=== PATIENT | female | born 1930 | race Caucasian/White ===

== ENCOUNTER 2018-05-05 13:40 | Emergency (ER) | payer MEDICARE, OTHER ==
--- NOTE | 2018-05-05 14:18 | EDM.PDOC ---
ED HPI GENERAL MEDICAL PROBLEM - General Chief Complaint: Genitourinary Problem Stated Complaint: BLOOD IN URINE Time Seen by Provider: 05/05/18 14:02 Source of Information: Reports: Patient History Limitations: Reports: No Limitations - History of Present Illness INITIAL COMMENTS - FREE TEXT/NARRATIVE: Patient is a 87-year-old female who presents to the ED complaining of hematuria. She states she believes this started a few days ago. She noticed this a.m. thus prompted examination in the ER today. She attempted to get in with her PCP but was unable to. She denies any pain with urination. She has no prior history of hematuria. No abdominal pain as well. She denies any fever, chills, night sweats, history of bladder cancer. Patient does have a history of incontinence and has in the past had a UTI with not knowing. She has no history of kidney stones. She has no smoking history. She denies any additional complaints. - Related Data Allergies Allergy/AdvReac Type Severity Reaction Status Date / Time Sulfa (Sulfonamide Allergy Hives Verified 12/26/14 09:49 Antibiotics) Home Meds: Home Meds Amitriptyline [Elavil] 50 mg PO BEDTIME 05/05/18 [History] Calcium Citrate/Vitamin D3 [Calcium Citrate - Vit D Caplet] 1 tab PO DAILY 05/05 [History] Ciprofloxacin HCl [Cipro] 500 mg PO BID #14 tablet 05/05/18 [Rx] Cyanocobalamin (Vitamin B12) [Vitamin B12] 250 mcg PO DAILY 05/05/18 [History] Folic Acid 400 mcg PO DAILY 05/05/18 [History] Gluc/Daryn-Msm#2/C/D3/Bairon/Born [Eafjmrxmll-Tdjpuysxnny-KFL] 1 tab PO DAILY 05/05 [History] Levothyroxine [Synthroid] 88 mcg PO DAILY 05/05/18 [History] Meloxicam 15 mg PO DAILY 05/05/18 [History] Metoprolol Tartrate 25 mg PO DAILY 05/05/18 [History] Multivitamin [Multivitamins] 1 tab PO DAILY 05/05/18 [History] [place]-3/DHA/Epa/Fish Oil [[place]-3 Fish Oil 1,000 MG Sfgl] 1,000 mg PO DAILY [History] Omeprazole 20 mg PO DAILY 05/05/18 [History] PEG 400/Hypromellose/Glycerin [Visine Tears Drops] 1 drop TOP ASDIRECTED [History] Pyridoxine HCl [Vitamin B-6] 100 mg PO DAILY 05/05/18 [History] Tolterodine Tartrate [Detrol LA] 4 mg PO DAILY 05/05/18 [History] Vitamin E 400 unit PO DAILY 05/05/18 [History] amLODIPine [Norvasc] 5 mg PO DAILY 05/05/18 [History] Past Medical History Cardiovascular History: Reports: Hypertension Gastrointestinal History: Reports: GERD Genitourinary History: Reports: Urinary Incontinence Endocrine/Metabolic History: Reports: Hypothyroidism - Past Surgical History HEENT Surgical History: Reports: Tonsillectomy Female Surgical History: Reports: Hysterectomy Social & Family History - Tobacco Use Smoking Status *Q: Never Smoker - Caffeine Use Caffeine Use: Reports: Coffee - Recreational Drug Use Recreational Drug Use: No ED ROS GENERAL - Review of Systems Review Of Systems: ROS reveals no pertinent complaints other than HPI. ED EXAM, RENAL/ - Physical Exam Exam: See Below Exam Limited By: No Limitations General Appearance: Alert, WD/WN, No Apparent Distress Ears: Hearing Grossly Normal Nose: Normal Inspection Throat/Mouth: Normal Inspection, Normal Voice, No Airway Compromise Head: Atraumatic, Normocephalic Neck: Normal Inspection, Supple Respiratory/Chest: No Respiratory Distress, Lungs Clear, Normal Breath Sounds, No Accessory Muscle Use Cardiovascular: Normal Peripheral Pulses, Regular Rate, Rhythm, No Murmur GI/Abdominal: Normal Bowel Sounds, Soft, Non-Tender, No Organomegaly, No Distention (Female) Exam: Deferred Back Exam: Normal Inspection. No: CVA Tenderness (L), CVA Tenderness (R) Extremities: Normal Inspection Neurological: Alert, Oriented, CN II-XII Intact, Normal Cognition, No Motor/ Sensory Deficits Psychiatric: Normal Affect, Normal Mood Skin Exam: Warm, Dry, Intact, Normal Color, No Rash Course - Vital Signs Last Recorded V/S: Last Vital Signs Temp 97.6 F 05/05/18 14:05 Pulse 80 05/05/18 14:08 Resp 20 05/05/18 14:08 BP 151/72 H 05/05/18 14:08 Pulse Ox 100 05/05/18 14:08 - Orders/Labs/Meds Orders: Active Orders 24 hr Category Date Time Status Communication Order [RC] STAT Care 05/05/18 14:14 Active Urinary Catheter Assessment [RC] ASDIRECTED Care 05/05/18 15:31 Active Urinary Catheter Insertion [Insert Urinary Catheter] [ Care 05/05/18 15:30 Ordered OM.PC] Q24H CULTURE URINE [RM] Stat Lab 05/05/18 15:20 Received Labs: Laboratory Tests 05/05/18 05/05/18 05/05/18 Range/Units 14:35 14:35 14:35 WBC 8.08 (3.98-10.04) K/mm3 RBC 3.99 (3.98-5.22) M/mm3 Hgb 12.7 (11.2-15.7) gm/L Hct 39.4 (34.1-44.9) % MCV 98.7 H (79.4-94.8) fl MCH 31.8 (25.6-32.2) pg MCHC 32.2 (32.2-35.5) g/dl RDW Std Deviation 49.6 H (36.4-46.3) fL Plt Count 300 (182-369) K/mm3 MPV 10.1 (9.4-12.3) fl Neutrophils % (Manual) 49 (40-60) % Band Neutrophils % 1 (0-10) % Lymphocytes % (Manual) 40 (20-40) % Atypical Lymphs % 0 % Monocytes % (Manual) 4 (2-10) % Eosinophils % (Manual) 6 H (0.7-5.8) % Basophils % (Manual) 0 L (0.1-1.2) Platelet Estimate Adequate RBC Morph Comment Normal PT 10.4 (9.5-12.1) SECONDS INR 0.95 APTT 28 (24-31) SECONDS Sodium 143 (136-145) mEq/L Potassium 4.5 (3.5-5.1) mEq/L Chloride 106 (98-107) mEq/L Carbon Dioxide 29 (21-32) mEq/L Anion Gap 12.5 (5-15) BUN 30 H (7-18) mg/dL Creatinine 1.2 H (0.55-1.02) mg/dL Est Cr Clr Drug Dosing 28.52 mL/min Estimated GFR (MDRD) 42 (>60) mL/min BUN/Creatinine Ratio 25.0 H (14-18) Glucose 127 H (83-115) mg/dL Calcium 9.4 (8.5-10.1) mg/dL Total Bilirubin 0.4 (0.2-1.0) mg/dL AST 19 (15-37) U/L ALT 23 (14-59) U/L Alkaline Phosphatase 90 (46-116) U/L Total Protein 7.5 (6.4-8.2) g/dl Albumin 3.7 (3.4-5.0) g/dl Globulin 3.8 gm/dL Albumin/Globulin Ratio 1.0 (1-2) Urine Color (Yellow) Urine Appearance (Clear) Urine pH (5.0-8.0) Ur Specific Lenore (1.005-1.030) Urine Protein (Negative) Urine Glucose (UA) (Negative) Urine Ketones (Negative) Urine Occult Blood (Negative) Urine Nitrite (Negative) Urine Bilirubin (Negative) Urine Urobilinogen (0.2-1.0) Ur Leukocyte Esterase (Negative) Urine RBC (0-5) /hpf Urine WBC (0-5) /hpf Ur Epithelial Cells (0-5) /hpf Amorphous Sediment (NOT SEEN) /hpf Urine Bacteria (FEW) /hpf Urine Mucus (FEW) /hpf 05/05/18 Range/Units 15:20 WBC (3.98-10.04) K/mm3 RBC (3.98-5.22) M/mm3 Hgb (11.2-15.7) gm/L Hct (34.1-44.9) % MCV (79.4-94.8) fl MCH (25.6-32.2) pg MCHC (32.2-35.5) g/dl RDW Std Deviation (36.4-46.3) fL Plt Count (182-369) K/mm3 MPV (9.4-12.3) fl Neutrophils % (Manual) (40-60) % Band Neutrophils % (0-10) % Lymphocytes % (Manual) (20-40) % Atypical Lymphs % % Monocytes % (Manual) (2-10) % Eosinophils % (Manual) (0.7-5.8) % Basophils % (Manual) (0.1-1.2) Platelet Estimate RBC Morph Comment PT (9.5-12.1) SECONDS INR APTT (24-31) SECONDS Sodium (136-145) mEq/L Potassium (3.5-5.1) mEq/L Chloride (98-107) mEq/L Carbon Dioxide (21-32) mEq/L Anion Gap (5-15) BUN (7-18) mg/dL Creatinine (0.55-1.02) mg/dL Est Cr Clr Drug Dosing mL/min Estimated GFR (MDRD) (>60) mL/min BUN/Creatinine Ratio (14-18) Glucose (83-115) mg/dL Calcium (8.5-10.1) mg/dL Total Bilirubin (0.2-1.0) mg/dL AST (15-37) U/L ALT (14-59) U/L Alkaline Phosphatase (46-116) U/L Total Protein (6.4-8.2) g/dl Albumin (3.4-5.0) g/dl Globulin gm/dL Albumin/Globulin Ratio (1-2) Urine Color Brown H (Yellow) Urine Appearance Turbid H (Clear) Urine pH 6.5 (5.0-8.0) Ur Specific Lenore 1.020 (1.005-1.030) Urine Protein 3+ H (Negative) Urine Glucose (UA) Negative (Negative) Urine Ketones Trace H (Negative) Urine Occult Blood 3+ H (Negative) Urine Nitrite Negative (Negative) Urine Bilirubin 3+ H (Negative) Urine Urobilinogen 1.0 (0.2-1.0) Ur Leukocyte Esterase Trace H (Negative) Urine RBC Too numerous to cnt H (0-5) /hpf Urine WBC 5-10 H (0-5) /hpf Ur Epithelial Cells 0-5 (0-5) /hpf Amorphous Sediment Few H (NOT SEEN) /hpf Urine Bacteria Few (FEW) /hpf Urine Mucus Not seen (FEW) /hpf - Re-Assessments/Exams Free Text/Narrative Re-Assessment/Exam: Patients UA sample dark maroon colored. Patient has no discomfort. She does carry a history of UTIs in the past. She has a history of incontinence to urine as well. She denies any fever, chills, night sweats, recent weight loss, abdominal pain, back pain, smoking history, no history of bladder cancer, and/or any additional complaints. Will obtain basic labs including CBC, chem 14, coag studies, CRP, and UA Labs reviewed: Sodium potassium normal. BUN 30, creatinine 1.2, glucose 127, white blood cell count hemoglobin normal. Platelet count normal. UA revealed brown color, turbid, 3+ protein, trace ketones, occult blood 3+, bilirubin 3+, leukocyte esterase trace, nitrates negative, RBCs too numerous to count, urine diureses 5-10, amorphous sediment by mouth. Urine culture has been obtained. It appears patient does have a UTI. I am concerned patient still has another cause for the hematuria. I have offered to order a CT of the abdomen and pelvis with and without contrast to evaluate for bladder cancer. Patient refuses and will see her PCP this coming week. I will place an outpatient order for this to be performed. Patient can follow-up with PCP for results and determine further plan for additional testing or treatment that required. Return precautions discussed with the patient. Patient had no questions or concerns 05/05/18 16:51 per nursing staff patient left before obtaining discharge instructions. I did voice all the instructions as listed on the discharge summary. CT of the abdomen and pelvis with and without contrast has been ordered. In addition prescription for Cipro has been electronically sent to her pharmacy. Departure - Departure Time of Disposition: 16:44 Disposition: Home, Self-Care 01 Condition: Good Clinical Impression: UTI, Urinary tract infectious disease, Hematuria syndrome - Discharge Information Prescriptions: Ciprofloxacin HCl [Cipro] 500 mg PO BID #14 tablet Instructions: Asymptomatic Bacteriuria, Urinary Tract Infection, Adult, Easy-to -Read, Antibiotic Medicine, Adult, Hematuria, Adult Referrals: Vy Rodriguez, [employer] [Primary Care Provider] - Forms: ED Department Discharge Additional Instructions: Please take the full course of Cipro as prescribed for urinary tract infection. Outpatient order for CT of the abdomen and pelvis with and without contrast has been placed so we can further rule out other etiologies for the hematuria. Please call and make an appointment with PCP to be evaluated the first part of this coming week. Please return back to the ED if you develop any new or worsening symptoms. - My Orders Last 24 Hours: My Active Orders 05/05/18 14:14 Communication Order [RC] STAT 05/05/18 15:20 CULTURE URINE [RM] Stat 05/05/18 15:30 Urinary Catheter Insertion [Insert Urinary Catheter] [OM.PC] Q24H 05/05/18 15:31 Urinary Catheter Assessment [RC] ASDIRECTED - Assessment/Plan Last 24 Hours: My Active Orders 05/05/18 14:14 Communication Order [RC] STAT 05/05/18 15:20 CULTURE URINE [RM] Stat 05/05/18 15:30 Urinary Catheter Insertion [Insert Urinary Catheter] [OM.PC] Q24H 05/05/18 15:31 Urinary Catheter Assessment [RC] ASDIRECTED
[2018-05-05 14:33] VITALS: BP 151/72
== END 2018-05-05 16:46 | disposition home or self-care (01) ==
LOC: JD.ED 13:40
DX: N39.0 Urinary tract infection, site not specified (principal); R31.9 Hematuria, unspecified; I10 Essential (primary) hypertension; K21.9 Gastro-esophageal reflux disease without esophagitis; E03.9 Hypothyroidism, unspecified; Z79.2 Long term (current) use of antibiotics; Z79.899 Other long term (current) drug therapy; Z88.2 Allergy status to sulfonamides; Z90.89 Acquired absence of other organs; Z90.710 Acquired absence of both cervix and uterus
CPT/HCPCS: 36415; 80053; 81001; 85007; 85027; 85610; 85730; 87086; 99283